=== PATIENT | female | born 1985 | race Caucasian/White ===

== ENCOUNTER → 2016-10-26 | Outpatient (CLI) | payer BC ==
[2016-10-26 10:09] LABS: HEMOGLOBIN 13.9 gm/dl (12.3-15.3); RED BLOOD COUNT 4.49 M/UL (4.00-5.10); WHITE BLOOD COUNT 8.8 K/UL (4.5-11.0)
[2016-10-26 10:28] LABS: BUN/CREATININE RATIO 25 (0-10)
== END ==
LOC: LAB 09:32
PROVIDERS: Internal Medicine
DX: Z13.1 Encounter for screening for diabetes mellitus (principal); E55.9 Vitamin D deficiency, unspecified; E80.6 Other disorders of bilirubin metabolism; Z13.220 Encounter for screening for lipoid disorders; Z02.89 Encounter for other administrative examinations
CPT/HCPCS: 80053; 80061; 84439; 84443; 85025

== ENCOUNTER → 2020-02-13 | Outpatient (CLI) | payer BC | LOC: EROP 12:23 | DX: Z20.822 Contact with and (suspected) exposure to COVID-19 (principal) | CPT/HCPCS: U0002 ==

== ENCOUNTER → 2020-10-04 | Outpatient (CLI) | payer BC ==
[2020-10-04 08:35] LABS: HEMOGLOBIN 14.3 gm/dl (12.3-15.3); RED BLOOD COUNT 4.6 M/UL (4.00-5.10); WHITE BLOOD COUNT 5.6 K/UL (4.5-11.0)
[2020-10-04 09:00] LABS: BUN/CREATININE RATIO 15 (0-10)
== END ==
LOC: LAB 07:38
PROVIDERS: Physician Assistant
DX: E66.9 Obesity, unspecified (principal)
CPT/HCPCS: 36415; 80053; 80061; 84439; 84443; 85025

== ENCOUNTER → 2020-10-18 | Outpatient (CLI) | payer BC ==
[2020-10-18 19:19] LABS: BUN/CREATININE RATIO 16 (0-10)
[2020-10-21 14:10] LABS: ALPHA-1-ANTITRYPSIN, SERUM 128 mg/dL (100-188); CERULOPLASMIN 23.6 mg/dL (19.0-39.0)
[2020-10-22 07:11] LABS: HBSAG SCREEN Negative (Negative); HCV AB <0.1 (0.0-0.9); HEP B CORE AB, IGM Negative (Negative); HEP B CORE AB, TOT Negative (Negative)
== END ==
LOC: LAB 18:30
PROVIDERS: Physician Assistant
DX: R74.8 Abnormal levels of other serum enzymes (principal)
CPT/HCPCS: 80053; 82103; 82172; 82247; 82390; 82465; 82728; 82947; 82977; 83010; 83540; 83550; 83883; 84450; 84460; 84478; 86704; 86705; 86706; 86708; 86803; 87340

== ENCOUNTER → 2020-10-23 | Outpatient (CLI) | payer BC | LOC: RAD 11:24 | DX: M79.644 Pain in right finger(s) (principal) | CPT/HCPCS: 73130 ==

== ENCOUNTER → 2020-10-25 | Outpatient (CLI) | payer BC | LOC: EXRD 10:01 | DX: R74.8 Abnormal levels of other serum enzymes (principal) | CPT/HCPCS: 76705 ==

== ENCOUNTER → 2021-08-29 | Outpatient (CLI) | payer BC | LOC: EXRD 09:23 | DX: R93.2 Abnormal findings on diagnostic imaging of liver and biliary tract (principal) | CPT/HCPCS: 76705 ==

== ENCOUNTER → 2021-08-29 | Outpatient (CLI) | payer BC ==
[2021-08-29 10:27] LABS: HEMOGLOBIN 14.5 gm/dl (12.3-15.3); RED BLOOD COUNT 4.66 M/UL (4.00-5.10); WHITE BLOOD COUNT 5.7 K/UL (4.5-11.0)
[2021-08-29 11:01] LABS: BUN/CREATININE RATIO 16 (0-10)
== END ==
LOC: LAB 10:04
PROVIDERS: Physician Assistant
DX: E66.9 Obesity, unspecified (principal)
CPT/HCPCS: 36415; 80053; 80061; 85025